=== PATIENT | male | born 1995 | race Caucasian/White ===

== ENCOUNTER 2023-02-14 18:52 | Emergency (ER) | payer OTHER ==
[~2023-02-14] VITALS: Ht 177.8 cm; Wt 120.6 kg
[2023-02-14 19:24] VITALS: BP 140/87
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
[2023-02-14] MEDS ORDERED: LIDOCAINE 1% INJ 20 ML VIAL ONE (21:48)
== END 2023-02-14 22:09 | disposition home or self-care (01) ==
LOC: ER 18:55
DX: M54.50 Low back pain, unspecified (principal); K21.9 Gastro-esophageal reflux disease without esophagitis; Z28.310 Unvaccinated for COVID-19; Z79.899 Other long term (current) drug therapy; V89.2XXA Person injured in unspecified motor-vehicle accident, traffic, initial encounter; Y92.410 Unspecified street and highway as the place of occurrence of the external cause
CPT/HCPCS: 99281